=== PATIENT | male | born 1980 | race Two or more races ===

== ENCOUNTER 2021-03-28 16:39 | Inpatient (IN) ==
[2021-03-28 17:47] LABS: Urine Benzodiazepine Screen None Detected (None Detect); Urine Cannabinoids Screen None Detected (None Detect); Urine Opiates Screen None Detected (None Detect)
[2021-03-28 17:47] LABS: ABS Eosinophils 0.1 10^3/ul (0-0.6); ABS Lymphocytes 1.2 10^3/ul (1.0-4.8); ABS Monocytes 0.3 10^3/ul (0-0.8); ABS Neutrophils 4.6 10^3/ul (1.5-7.7); Eosinophil % 0.9 %; Hematocrit 43 % (42-52); Lymphocyte % 18.8 %; Mean Corpuscular HGB Conc 35 g/dL (31-36); Mean Corpuscular Hemoglobin 33 pg (27-31); Mean Corpuscular Volume 94 fL (80-94); Mean Platelet Volume 6.8 fL (7.4-10.4); Nucleated Red Blood Cells % 0.1; Platelet Count 189 10^3/uL (150-450); Red Cell Distribution Width 14 % (10-15); White Blood Count 6.2 10^3/uL (3.5-10.8)
[2021-03-28 18:03] LABS: ALT 11 U/L (7-52); Albumin 4.6 g/dL (3.2-5.2); Albumin/Globulin Ratio 1.8 (1-3); Alkaline Phosphatase 64 U/L (35-149); Blood Urea Nitrogen 14 mg/dL (6-24); CO2 Carbon Dioxide 25 mmol/L (22-32); Calcium 9.5 mg/dL (8.6-10.3); Chloride 106 mmol/L (101-111); EGFR African American 99.6 (>60); EGFR Non-African American 82.3 (>60); Globulin 2.5 g/dL (2-4); Glucose 102 mg/dL (70-100); Sodium 136 mmol/L (135-145); Total Protein 7.1 g/dL (6.4-8.9)
[2021-03-28 18:42] LABS: Acetaminophen < 15 mcg/mL; Alcohol, S < 10 mg/dL (<10); Salicylate < 2.50 mg/dL (<30)
[2021-03-28 18:56] LABS: TSH Ultra Thyroid Stim Horm 0.39 mcIU/mL (0.34-5.60)
[2021-03-28 19:44] LABS: AST 14 U/L (13-39); Anion Gap 5 mmol/L (2-11); Potassium 4.1 mmol/L (3.5-5.0)
[2021-03-29] MEDS ORDERED: Al Hydrox/Mg Hydrox/Simet LIQ 30 ML UDC PO PRN (02:36)
[2021-03-29] MEDS: Nicotine GUM 4MG FRUIT FLAVOR PO PRN ×3 (03:16→17:18)
[2021-03-29] MEDS: Vitamin THERAPEUTIC TAB PO SCH (12:34)
[2021-03-30] MEDS: Vitamin THERAPEUTIC TAB PO SCH (08:49)
[2021-03-30] MEDS: Nicotine GUM 2MG FRUIT FLAVOR PO PRN ×3 (08:49→18:17)
[2021-03-30] MEDS: Nicotine PATCH 21 MG/24 HR PATCH TRANSDERM SCH (09:13)
[2021-03-31] MEDS: Vitamin THERAPEUTIC TAB PO SCH (08:22)
[2021-03-31] MEDS: Nicotine GUM 2MG FRUIT FLAVOR PO PRN ×2 (08:22→12:30)
[2021-03-31] MEDS: Nicotine PATCH 21 MG/24 HR PATCH TRANSDERM SCH (09:19)
[2021-03-31 10:32] VITALS: BP 123/76
== END 2021-03-31 15:59 | disposition home or self-care (01) | DRG 751 ==
LOC: ED 16:39 → BSU 03-29 01:19
PROVIDERS: ADMIT Psychiatry & Neurology Addiction Psychiatry; ATTEND Psychiatry & Neurology Addiction Psychiatry